=== PATIENT | male | born 1980 | race Caucasian/White ===

== ENCOUNTER 2017-01-04 02:47 | Inpatient (IN) | payer OTHER ==
[~2017-01-04] VITALS: Ht 190.5 cm; Wt 73.6 kg
[2017-01-04] MEDS ORDERED: ACETAMINOPHEN 325 MG TAB PO PRN (03:45)
[2017-01-04] MEDS ORDERED: LORazepam 2 MG TAB PO PRN (03:45)
[2017-01-04] MEDS ORDERED: diphenhydrAMINE HCL 50 MG CAP PO PRN (03:45)
[2017-01-04] MEDS ORDERED: hydrOXYzine HCL 50 MG TAB PO PRN (03:45)
[2017-01-04] MEDS ORDERED: diphenhydrAMINE HCL 50 MG CAP - HS PRN PO (03:45)
[2017-01-04] MEDS ORDERED: diphenhydrAMINE HCL 50 MG/ML VIAL - HS PRN IM (03:45)
[2017-01-04] MEDS ORDERED: ALUMINUM/MAGNESIUM/SIMETH 30 ML CUP PO PRN (03:45)
[2017-01-04] MEDS ORDERED: LORazepam 1 MG TAB PO PRN (03:45)
[2017-01-04] MEDS ORDERED: MAGNESIUM HYDROXIDE SUSP 30 ML CUP PO PRN (03:45)
[2017-01-04] MEDS ORDERED: FLUMAZENIL 0.5 MG/5 ML VIAL IV PUSH PRN (03:45)
[2017-01-04] MEDS ORDERED: diphenhydrAMINE HCL 50 MG/ML VIAL IM PRN (03:45)
[2017-01-04] MEDS ORDERED: LORazepam 2 MG/ML VIAL IV PUSH PRN ×4 (03:45)
[2017-01-04 04:20] VITALS: BP 107/60; PULSE 50; RESP 18; TEMP 97.5; O2SAT 98
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
--- NOTE | 2017-01-04 12:20 | HHI.DS ---
Psychiatry Discharge Summary Advance Directive: No Reason Not Provided: DENIES THE NEED Mental Health AdvanceDirective: No Health Care Proxy: No Admission Admission Date Jan 04, 2017 at 03:00 Admission Diagnosis: Tobacco Use In Past 30 Days: No Tobacco Past 30 Days Alcohol Use: 2-4 Times Per Month Results Blood Pressure 107 / 60 Vital Signs Date Time Temp Pulse Resp B/P Pulse Ox O2 Delivery O2 Flow Rate FiO2 01/04/17 04:20 97.5 50 18 107/60 98 Medications Approp Antipsych med options 1 - Minimum of three failed multiple trials of monotherapy. 2 - Documented plan to taper to monotherapy due to previous use of multiple meds OR cross-taper in progress at D/C. 3 - Documentation of augmentation of Clozapine. 4 - Justification other than those listed in allowable values 1-3, document here : Discharge Discharge Disposition: Discharge Home Discharge Instructions Diet Instructions: As Tolerated, No Restrictions Activities you can perform: Weight Bearing as Mitesh Scheduled Appointment: [facility] Plan Goals to promote your health * To prevent worsening of your condition and complications * To maintain your health at the optimal level Directions to meet your goals Take your medications as prescribed Follow your dietary instruction Follow activity as directed Keep your appointments as scheduled Take your immunizations and boosters as scheduled If your symptoms worsen call your PCP, if no PCP go to Urgent Care Center or Emergency Room For 20/06 questions related to your inpatient stay or results of tests pending at discharge, please contact Dr. Cedric Price at Smoking is Dangerous to Your Health. Avoid second hand smoking Cedric Price MD Jan 04, 2017 12:20
== END 2017-01-04 13:25 | disposition home or self-care (01) | DRG 897 ==
LOC: H270 03:00
PROVIDERS: ADMIT Psychiatry & Neurology Psychiatry; ATTEND Psychiatry & Neurology Psychiatry
DX: F19.10 Other psychoactive substance abuse, uncomplicated (principal); F10.129 Alcohol abuse with intoxication, unspecified; F31.9 Bipolar disorder, unspecified; Z59.0 Homelessness; F12.90 Cannabis use, unspecified, uncomplicated; M19.90 Unspecified osteoarthritis, unspecified site
CPT/HCPCS: Q0163